=== PATIENT | female | born 1965 | race American Indian/Alaskan Native ===

== ENCOUNTER 2019-07-02 17:07 | Emergency (ER) | payer MEDICAID ==
[2019-07-02 18:33] VITALS: BP 148/78
--- NOTE | 2019-07-02 18:33 | Event Note ---
ED Screening Note Date of service: 07/02/19 Time: 18:31 ED Screening Note: Pt complains of cough x 4 days green mucus +COPD This initial assessment/diagnostic orders/clinical plan/treatment(s) is/are subject to change based on patients health status, clinical progression and re- assessment by fellow clinical providers in the ED. Further treatment and workup at subsequent clinical providers discretion. Patient/guardian urged not to elope from the ED as their condition may be serious if not clinically assessed and managed. Initial orders include: CXR
--- NOTE | 2019-07-02 19:38 | XRay Report ---
CHEST 2 VIEWS INDICATION / CLINICAL INFORMATION: Productive cough COMPARISON: None available. FINDINGS: SUPPORT DEVICES: None. HEART / MEDIASTINUM: No significant abnormality. LUNGS / PLEURA: No significant pulmonary or pleural abnormality. .No pneumothorax. ADDITIONAL FINDINGS: No significant additional findings. IMPRESSION: 1. No acute findings. Signer Name: Nelson Nava MD Signed: 07/02/2019 7:33 PM Workstation Name: [id number]
[2019-07-02] MEDS ORDERED: IPRATROPIUM/ALBUTEROL SULFATE 3 ML AMPUL.NEB IH ONE (19:43)
[2019-07-02] MEDS ORDERED: methylPREDNISolone Sod Succinate 125 MG/2 ML INJ IM ONE (19:43)
--- NOTE | 2019-07-02 20:06 | Emergency Department Report ---
- General Chief Complaint: Upper Respiratory Infection Stated Complaint: CONSTANT COUGH Time Seen by Provider: 07/02/19 18:31 Source: patient Mode of arrival: Ambulatory Limitations: No Limitations - History of Present Illness Initial Comments: Patient is a 54-year-old -[place] female who was a former smoker who presents to the ED recombinant of persistent nasal and sinus congestion, frontal sinus pressure, dry cough and wheezing for the last 4 days, worse in the last 24 hours. Patient states that she had a similar episode about a month ago and was treated with antibiotics and cough syrup. Patient denies chest pain, dizziness, sore throat, nausea and vomiting, diarrhea, abdominal pain, shortness of breath, change in vision, syncope, palpitations, dysuria, urinary frequency and urgency or vaginal bleeding. MD Complaint: cough, rhinorrhea, nasal congestion, sinus pain -: Sudden, days(s) (4) Severity: severe Severity scale (0 -10): 6 Quality: sharp Consistency: intermittent Improves With: cough suppressant Worsens With: nothing Context: sick contacts Associated Symptoms: denies other symptoms, rhinorrhea, nasal congestion, cough. denies: fever, chills, myalgias, diaphoresis, headache, stiff neck, chest pain, shortness of breath, abdominal pain, nausea, vomiting, diarrhea, dysuria, rash, confusion, epistaxis, hoarseness, ear pain, other Treatments Prior to Arrival: none - Related Data Previous Rx's Medication Instructions Recorded Last Taken Type Cetirizine HCl [Zyrtec 10mg tab] 10 mg PO DAILY #30 tablet 07/02/19 Unknown Rx Doxycycline Hyclate [Doxycycline 100 mg PO Q12HR #20 tab 07/02/19 Unknown Rx Hyclate TAB] Ibuprofen [Motrin] 600 mg PO Q8H PRN #20 tablet 07/02/19 Unknown Rx Prednisone [predniSONE 10 mg 10 mg PO .TAPER #1 tab.ds.pk 07/02/19 Unknown Rx (6-Day Pack, 21 Tabs)] Promethazine/Phenyleph/Codeine 5 ml PO Q6H PRN #120 syrup 07/02/19 Unknown Rx [[id number] Syrup] Allergies Allergy/AdvReac Type Severity Reaction Status Date / Time No Known Allergies Allergy Unverified 07/02/19 17:09 ED Review of Systems ROS: Stated complaint: CONSTANT COUGH Other details as noted in HPI Constitutional: denies: chills, fever Eyes: denies: eye pain, eye discharge, vision change ENT: congestion. denies: ear pain, throat pain Respiratory: cough, shortness of breath, wheezing Cardiovascular: denies: chest pain, palpitations Endocrine: no symptoms reported Gastrointestinal: denies: abdominal pain, nausea, diarrhea Genitourinary: denies: urgency, dysuria, discharge Musculoskeletal: denies: back pain, joint swelling, arthralgia Skin: denies: rash, lesions Neurological: denies: headache, weakness, paresthesias Psychiatric: denies: anxiety, depression Hematological/Lymphatic: denies: easy bleeding, easy bruising ED Past Medical Hx - Past Medical History Previous Medical History?: Yes Hx Arthritis: Yes Hx Psychiatric Treatment: Yes (depression) Hx COPD: Yes (bronchitis) Additional medical history: chronic back pain - Surgical History Past Surgical History?: Yes Additional Surgical History: x3 - Social History Smoking Status: Former Smoker Substance Use Type: None - Medications Home Medications: Home Medications Medication Instructions Recorded Confirmed Last Taken Type Cetirizine HCl [Zyrtec 10mg tab] 10 mg PO DAILY #30 tablet 07/02/19 Unknown Rx Doxycycline Hyclate [Doxycycline 100 mg PO Q12HR #20 tab 07/02/19 Unknown Rx Hyclate TAB] Ibuprofen [Motrin] 600 mg PO Q8H PRN #20 tablet 07/02/19 Unknown Rx Prednisone [predniSONE 10 mg 10 mg PO .TAPER #1 tab.ds.pk 07/02/19 Unknown Rx (6-Day Pack, 21 Tabs)] Promethazine/Phenyleph/Codeine 5 ml PO Q6H PRN #120 syrup 07/02/19 Unknown Rx [[id number]-RU-Gtfmbid Syrup] ED Physical Exam - General Limitations: No Limitations General appearance: alert, in no apparent distress - Head Head exam: Present: atraumatic, normocephalic, normal inspection - Eye Eye exam: Present: normal appearance, PERRL, EOMI Pupils: Present: normal accommodation - ENT ENT exam: Present: normal orophraynx, mucous membranes moist, TM's normal bilaterally, normal external ear exam, other (grossly congested nasal passages) - Neck Neck exam: Present: normal inspection, full ROM - Respiratory Respiratory exam: Present: wheezes (mildly diffuse coarse wheezes throughout). Absent: respiratory distress, rales, rhonchi, chest wall tenderness, accessory muscle use, decreased breath sounds, prolonged expiratory - Cardiovascular Cardiovascular Exam: Present: regular rate, normal rhythm, normal heart sounds. Absent: systolic murmur, diastolic murmur, rubs, gallop - GI/Abdominal GI/Abdominal exam: Present: soft, normal bowel sounds. Absent: tenderness, guarding, rebound, hyperactive bowel sounds, hypoactive bowel sounds, organomegaly - Extremities Exam Extremities exam: Present: normal inspection, full ROM, normal capillary refill - Back Exam Back exam: Present: normal inspection, full ROM. Absent: tenderness, CVA tenderness (R), CVA tenderness (L), muscle spasm, paraspinal tenderness, vertebral tenderness - Neurological Exam Neurological exam: Present: alert, oriented X3, CN II-XII intact, normal gait, reflexes normal - Psychiatric Psychiatric exam: Present: normal affect, normal mood - Skin Skin exam: Present: warm, dry, intact, normal color. Absent: rash ED Course Vital Signs 07/02/19 18:31 Temperature 98.1 F Pulse Rate 76 Respiratory 16 Rate Blood Pressure 148/78 O2 Sat by Pulse 99 Oximetry ED Medical Decision Making - Radiology Data Radiology results: report reviewed, image reviewed Chest x-ray shows no acute cardiopulmonary abnormalities or pneumonitis. - Medical Decision Making This is 54-year-old female who presented to the ED with complaint of persistent nasal and sinus congestion, frontal sinus pressure and persistent cough for the last 4 days. In the ED, patient is alert and oriented 3 and is not in any distress. Patient was to do the ED with DuoNeb and Solu-Medrol and on reevaluation, her wheezing is resolved cough severity is also improved. Chest x-ray shows no acute cardiopulmonary abnormalities or pneumonitis. Patient was discharged home on medications and advised to follow-up with her primary care physician in 7-10 days for reevaluation or return to the ED immediately if symptoms get worse. - Differential Diagnosis Pneumonia; Bronchitis; URI; Sinusitis; asthma Critical care attestation.: If time is entered above; I have spent that time in minutes in the direct care of this critically ill patient, excluding procedure time. ED Disposition Clinical Impression: Acute upper respiratory infection Acute bronchitis Qualifiers: Bronchitis organism: other organism Qualified Code(s): J20.8 - Acute bronchitis due to other specified organisms Disposition: DC-01 TO HOME OR SELFCARE Is pt being admited?: No Does the pt Need Aspirin: No Condition: Stable Instructions: Acute Bronchitis (ED), Upper Respiratory Infection (ED) Additional Instructions: Take medications with food, drink plenty of fluids and follow-up with your primary care physician in 7-10 days for reevaluation. Return to the ED immediately if symptoms get worse. Prescriptions: Doxycycline Hyclate [Doxycycline Hyclate TAB] 100 mg PO Q12HR #20 tab Ibuprofen [Motrin] 600 mg PO Q8H PRN #20 tablet PRN Reason: Pain Prednisone [predniSONE 10 mg (6-Day Pack, 21 Tabs)] 10 mg PO .TAPER #1 tab.ds.pk Promethazine/Phenyleph/Codeine [Zvxdjtdvhqbj-ZE-Gapxewv Syrup] 5 ml PO Q6H PRN #120 syrup PRN Reason: Cough Cetirizine HCl [Zyrtec 10mg tab] 10 mg PO DAILY #30 tablet Referrals: [facility] [Outside] - 3-5 Days Time of Disposition: 20:02 Print Language: ITALIAN
== END 2019-07-02 20:10 | disposition home or self-care (01) ==
LOC: ED 17:07
DX: J20.9 Acute bronchitis, unspecified (principal); M19.90 Unspecified osteoarthritis, unspecified site; J44.9 Chronic obstructive pulmonary disease, unspecified
CPT/HCPCS: 71046; 94640; 96372; 99283; J2930